=== PATIENT | male | born 1990 | race Caucasian/White ===

== ENCOUNTER 2020-07-02 15:40 | Emergency (ER) | payer BC ==
--- NOTE | 2020-07-02 16:28 | EDM.PDOC ---
ED HPI GENERAL MEDICAL PROBLEM - General Chief Complaint: General Stated Complaint: fall from horse, confusion, Time Seen by Provider: 07/02/20 15:54 Source of Information: Reports: Patient History Limitations: Reports: No Limitations - History of Present Illness INITIAL COMMENTS - FREE TEXT/NARRATIVE: Patient presents via private vehicle after a fall from his horse. 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 He doesn't remember what happened and no one was around to witness it. He thinks he was "out" five minutes or less. He awoke confused about where he was and what happened. He could sit up and stand without dizziness but has pain in the neck, upper back and left chest. He denies blurry vision. Back Pain Score (Numeric/FACES): 5 - Related Data Allergies Allergy/AdvReac Type Severity Reaction Status Date / Time No Known Drug Allergies Allergy Cannot Verified 07/02/20 15:58 Remember Home Meds: Home Meds . [No Known Home Meds] 07/02/20 [History] Social & Family History - Tobacco Use Smoking Status *Q: Never Smoker Second Hand Smoke Exposure: No - Caffeine Use Caffeine Use: Reports: Soda, Tea - Alcohol Use Days Per Week of Alcohol Use: 2 Number of Drinks Per Day: 2 Total Drinks Per Week: 4 - Recreational Drug Use Recreational Drug Use: No ED ROS GENERAL - Review of Systems Review Of Systems: See Below Constitutional: Denies: Fever, Chills, Malaise, Weakness HEENT: Denies: Ear Discharge, Ear Pain, Eye Pain, Nosebleed, Vision Change Respiratory: Denies: Shortness of Breath, Cough Cardiovascular: Reports: Chest Pain (chest wall), Syncope Endocrine: Denies: Fatigue GI/Abdominal: Reports: Abdominal Pain (LLQ) : Denies: Dysuria, Hematuria, Incontinence Musculoskeletal: Reports: Neck Pain, Back Pain. Denies: Shoulder Pain, Arm Pain, Hand Pain, Leg Pain, Foot Pain Skin: Denies: Cyanosis, Jaundice, Mottled, Pallor, Diaphoresis Neurological: Reports: Confusion, Syncope. Denies: Dizziness, Headache, Numbness, Paresthesia, Seizure, Tingling, Tremors, Trouble Speaking, Difficulty Walking, Weakness Psychiatric: Denies: Agitation, Anxiety ED EXAM, UPPER BACK/NECK PAIN - Physical Exam Exam: See Below Exam Limited By: No Limitations General Appearance: Alert, WD/WN, No Apparent Distress Eye Exam: Bilateral Eye: EOMI, Normal Inspection (full visual price), PERRL Ears Exam: Normal External Exam, Normal Canal, Hearing Grossly Normal, Normal TMs, TM Obscured by Cerumen (partial on right, less than 50%). No: Canal Blood, Canal Discharge Nose Exam: Normal Inspection, No Blood Throat/Mouth Exam: Normal Inspection, Normal Lips, Normal Voice, No Airway Compromise Head Exam: Atraumatic, Normocephalic Neck Exam: Painful Range of Motion, Paraspinous Muscle Tender, Tenderness, Tender Midline (tender to palpation immediate left of cervical spine at approx. C4 level.) Cardiovascular/Respiratory: Regular Rate, Rhythm, Normal Peripheral Pulses, No JVD, Normal Breath Sounds GI/Abdominal: Normal Bowel Sounds, Soft, Tender (slight tenderness of LLQ on palpation) Back Exam: Normal Inspection, Full Range of Motion. No: CVA Tenderness (L), CVA Tenderness (R) Extremities: Non-Tender, Normal Capillary Refill, Limited Range of Motion (raising arms bilat beyond 90 degrees exacerbates pain in upper back. There is no pain or evidence of injury to upper or lower extremities. EHL/FHL intact.). No: Arm Pain, Leg Pain Neurologic: assistant speech language pathologist II-XII nml As Tested, No Motor/Sensory Deficits, Alert, Normal Mood/Affect, Oriented x 3 Psychiatric: Normal Affect, Normal Mood Skin Exam: Normal Color, Warm/Dry Lymphatic: No Adenopathy Course - Vital Signs Last Recorded V/S: Last Vital Signs Temp 96.5 F L 07/02/20 15:45 Pulse 78 07/02/20 17:05 Resp 19 07/02/20 17:05 BP 147/70 H 07/02/20 17:05 Pulse Ox 98 07/02/20 17:05 - Orders/Labs/Meds Orders: Active Orders 24 hr Category Date Time Status Cervical Spine wo Cont [CT] Stat Exams 07/02/20 17:04 Ordered Head wo Cont [CT] Stat Exams 07/02/20 17:04 Ordered - Re-Assessments/Exams Free Text/Narrative Re-Assessment/Exam: 07/02/20 17:[address] our [address] scanner was undergoing repair. After exam of patient I deemed it necessary to obtain CT of head and C-spine. I called [facility] SAND[facility] Dr. Jere Duron who will accept if xrays show no evidence of gross fracture. However by the time xrays were obtained our CT machine was in order again so will get scans here. Patient was informed of this and is glad he doesn't have to transfer to [place] for this. 07/02/20 17:26 Xrays show no evidence of fracture of cervical or thoracic spine. 07/02/20 18:10 CT reports no evidence of fracture or acute pathology of head or cervical spine. 07/02/20 18:16 Discussed findings and expectations with patient. Re-exam after removal of C- collar is improved without pain at midline. Patient requests note excusing him from finals [employer] participation tomorrow. 07/02/20 18:42 We discussed that he can use Advil 400-600 mg tid prn as well as the Rx Flexeril for muscle spasm. Pt discharged to home in stable condition. Departure - Departure Time of Disposition: 18:21 Disposition: Home, Self-Care 01 Condition: Good Clinical Impression: Concussion with loss of consciousness of 30 minutes or less, initial encounter Neck muscle strain Qualifiers: Encounter type: initial encounter Qualified Code(s): S16.1XXA - Strain of muscle, fascia and tendon at neck level, initial encounter Strain of thoracic paraspinal muscles excluding T1 and T2 levels Qualifiers: Encounter type: initial encounter Qualified Code(s): S29.012A - Strain of muscle and tendon of back wall of thorax, initial encounter - Discharge Information Instructions: Head Injury, Adult, [id number], Post-Concussion Syndrome, [id number] Referrals: Kathryn Welch PA-C [Primary Care Provider] - Forms: ED Department Discharge Additional Instructions: Follow up with your provider or [facility] if worsening significantly. Follow concussion precautions. Follow up with your provider in about a week to recheck concussion, sooner if any problems. Sepsis Event Note (ED) - Evaluation Sepsis Screening Result: No Definite Risk - Focused Exam Vital Signs: Vital Signs Temp Pulse Resp BP Pulse Ox 07/02/20 17:05 78 19 147/70 H 98 07/02/20 16:45 75 19 155/86 H 98 07/02/20 15:59 74 13 162/95 H 99 07/02/20 15:45 96.5 F L 71 13 161/106 H 98 - My Orders Last 24 Hours: My Active Orders 07/02/20 17:04 Cervical Spine wo Cont [CT] Stat Head wo Cont [CT] Stat - Assessment/Plan Last 24 Hours: My Active Orders 07/02/20 17:04 Cervical Spine wo Cont [CT] Stat Head wo Cont [CT] Stat
--- NOTE | 2020-07-02 16:56 | CR ---
[id number] RAD/RAD Cervical Spine 2-3V EXAM: RAD Cervical Spine 2-3V CLINICAL DATA: TRAUMA AND PAIN. COMPARISON: No previous similar exam is available. FINDINGS: No fracture or subluxation is seen. The prevertebral soft tissues are within normal limits. The C1-C2 articulation is normal also. IMPRESSION: NEGATIVE EXAM. Zhang Brown MD 07/02/20 [id number] Thank you for allowing us to participate in the care of your patient.
--- NOTE | 2020-07-02 16:57 | CR ---
[id number] RAD/RAD Thoracic Spine 2V EXAM: RAD Thoracic Spine 2V INDICATION: Back pain. COMPARISON: No previous similar exam is available. FINDINGS: No fracture or subluxation is seen. Pedicles are intact. There is preservation of height of disc spaces and vertebrae. The paraspinal lines appear normal. IMPRESSION: No fracture or subluxation. No acute plain film abnormality. Zhang Brown MD 07/02/20 [id number] Thank you for allowing us to participate in the care of your patient.
--- NOTE | 2020-07-02 17:55 | CT ---
[id number] CT/CT Head WO IV EXAM: CT Head WO IV CLINICAL DATA: TRAUMA COMPARISON: NO PREVIOUS SIMILAR EXAM IS AVAILABLE FOR COMPARISON. FINDINGS: There is no mass or mass effect. There is no hemorrhage or hydrocephalus. There are no extra-axial fluid collections. There are no sites of abnormal attenuation. IMPRESSION: NO PLAIN CT EVIDENCE OF ACUTE INTRACRANIAL PROCESS. Zhang Brown MD 07/02/20 [id number] Thank you for allowing us to participate in the care of your patient.
--- NOTE | 2020-07-02 17:55 | CT ---
[id number] CT/CT Cervical Spine WO IV Exam: CT Cervical Spine WO IV Clinical Data: TRAUMA COMPARISON: CORRELATION IS MADE WITH THE CURRENT PLAIN FILMS FINDINGS: There is no fracture or subluxation The prevertebral soft tissues are unremarkable The C1-C2 articulation is intact IMPRESSION: NO FRACTURE OR SUBLUXATION Zhang Brown MD 07/02/20 1375 Thank you for allowing us to participate in the care of your patient.
== END 2020-07-02 18:45 | disposition home or self-care (01) ==
LOC: KA.ED 15:40
DX: S06.0X1A Concussion with loss of consciousness of 30 minutes or less, initial encounter (principal); S16.1XXA Strain of muscle, fascia and tendon at neck level, initial encounter; S29.012A Strain of muscle and tendon of back wall of thorax, initial encounter; H61.21 Impacted cerumen, right ear; R10.32 Left lower quadrant pain; V80.010A Animal-rider injured by fall from or being thrown from horse in noncollision accident, initial encounter
CPT/HCPCS: 70450; 72040; 72070; 72125; 99284; 99284-25

== ENCOUNTER 2025-07-07 16:23 | Emergency (ER) | payer BC | END 2025-07-07 17:15 | disposition home or self-care (01) | LOC: KA.ED 16:23 | DX: S62.660B Nondisplaced fracture of distal phalanx of right index finger, initial encounter for open fracture (principal); Z79.899 Other long term (current) drug therapy; W23.1XXA Caught, crushed, jammed, or pinched between stationary objects, initial encounter; Y93.89 Activity, other specified | CPT/HCPCS: 73140-F6; 96372; 99283; J0690 ==